=== PATIENT | male | born 1990 | race African-American/Black ===

== ENCOUNTER 2019-06-21 22:57 | Emergency (ER) | payer SELFPAY ==
[~2019-06-21] VITALS: Ht 195.6 cm; Wt 127.0 kg
[2019-06-21 23:10] VITALS: BP 132/83
--- NOTE | 2019-06-21 23:10 | NUR ---
ER Nurse Note: Pt came from home c/o chipped tooth that got infected. RT jaw swollen, pt stated difficulty swollowing. 10/ pain. Will continue to [facility].
[2019-06-21] MEDS ORDERED: Augmentin 875mg Tab ORAL ONE (23:15)
[2019-06-21] MEDS ORDERED: HYDROcodone/Acetamin 5/325 tab ORAL ONE (23:15)
[2019-06-21] MEDS ORDERED: HYDROCODON-ACE1 EA15 ORAL (23:21)
[2019-06-21] MEDS ORDERED: AUGMENTIN 875-1 EAC1 ORAL (23:21)
[2019-06-21] MEDS ORDERED: IBUPROFEN600 MG ORAL (23:21)
--- NOTE | 2019-06-21 23:22 | Emergency Room Report ---
History of Present Illness General Chief Complaint: Toothache Source: Patient Present Illness HPI Is a 29-year-old male with no past medical history. He presents with chief complaint of toothache and swelling to his left lower jaw. Onset for last 2 days. No trauma. No fever chills. He just made an appointment with a dentist. Pain is 7 out of 10. No nausea no vomiting. No fever chills. Allergies: Coded Allergies: No Known Allergies (Unverified , 06/21/19) Patient History Past Medical History: none, see triage record, old chart reviewed Past Surgical History: none Pertinent Family History: none Social History: Denies: smoking Immunizations: other Reviewed Nursing Documentation: PMH: Agreed; PSxH: Agreed Nursing Documentation-PMH Past Medical History: No Stated History Review of Systems Eye: Denies: eye pain, blurred vision ENT: Denies: ear pain, nose congestion, throat swelling Respiratory: Denies: cough, shortness of breath Cardiovascular: Denies: chest pain, palpitations Gastrointestinal: Denies: abdominal pain, diarrhea, nausea, vomiting Musculoskeletal: Denies: back pain, joint pain Skin: Denies: rash Neurological: Denies: headache, numbness Endocrine: Denies: increased thirst, increased urine Hematologic/Lymphatic: Denies: easy bruising All Other Systems: negative except mentioned in HPI Physical Exam Vital Signs Date Time Temp Pulse Resp B/P (MAP) Pulse Ox O2 Delivery O2 Flow Rate FiO2 06/21/19 23:01 98.8 88 18 132/83 (99) 98 Room Air Vitals normal Sp02 EP Interpretation: reviewed, normal General Appearance: well appearing, no apparent distress, alert Head: normocephalic, atraumatic Eyes: bilateral eye PERRL, bilateral eye EOMI ENT: hearing grossly normal, normal pharynx, other - There is a dental abscess to the right lower jaw on the mucosal side of the first and second molars. Neck: full range of motion, supple, no meningismus Respiratory: chest non-tender, lungs clear, normal breath sounds Cardiovascular #1: regular rate, rhythm, no murmur Gastrointestinal: normal bowel sounds, non tender, no mass, no organomegaly, no bruit, non-distended Musculoskeletal: back normal, gait/station normal, normal range of motion Psychiatric: mood/affect normal Procedures Incision and Drainage Incision and Drainage : Consent: Verbal Site: Right lower jaw Blade Size: 11 Wound Location: other - Oral cavity Anesthesia: Lidocaine w/ Epi Volume Anesthetic (ccs): 1 Patient Tolerated: Well Complications: None Progress Local anesthetic with 1% lidocaine with epinephrine. I made a 1 cm incision and there was moderate amount of pus expressed. Patient tolerated procedure without any problem. Medical Decision Making Diagnostic Impression: Primary Impression: Dental abscess ER Course Patient with a dental abscess. No evidence of deep infection. Will discharge home. Last Vital Signs Date Time Temp Pulse Resp B/P (MAP) Pulse Ox O2 Delivery O2 Flow Rate FiO2 06/21/19 23:01 98.8 88 18 132/83 (99) 98 Room Air Status: improved Disposition: HOME, SELF-CARE Condition: Stable Scripts Ibuprofen* (MOTRIN*) 600 Mg Tablet 600 MG ORAL THREE TIMES A DAY, #30 TAB 0 Refills Prov: Glen Murry MD 06/21/19 Hydrocodone/Acetaminophen 5-325* (HYDROCODONE/ACETAMINOPHEN 5-325*) 1 Each Tablet 1 TAB ORAL Q6H PRN for For Pain, #10 TAB 0 Refills Prov: lGen Murry MD 06/21/19 Amoxicillin/Potassium Clav 875-125* (AUGMENTIN 875-125 TABLET*) 1 Each Tablet 1 TAB ORAL TWICE A DAY, #14 TAB Prov: Glen Murry MD 06/21/19 Additional Instructions: Follow-up with dentist ERICA. Return if symptoms worsen. Glen Murry MD Jun 21, 2019 23:22
[2019-06-21 23:30] VITALS: BP 132/83
--- NOTE | 2019-06-21 23:30 | NUR ---
ER Nurse Note: Pt seen, treated, medically cleared for discharge by ERMD. Discharge instuctions and prescriptions given with repeat verbalization by pt. Emphasized to follow up with primay care provider; take whole course of medication. Explained each medication. All orders completed per ERMD orders. Pt a&ox4, VSS, no signs of distress. ID band removed. All questions answered per pt's questions. Pt left with all belongings, left with own transportation.
== END 2019-06-21 23:30 | disposition home or self-care (01) ==
LOC: EMR 23:16
DX: K04.7 Periapical abscess without sinus (principal)
CPT/HCPCS: 10060; 99283